=== PATIENT | female | born 1985 | race Two or more races ===

== ENCOUNTER 2021-09-15 19:37 | Emergency (ER) | payer MEDICAID, OTHER ==
[~2021-09-15] VITALS: Ht 175.3 cm; Wt 34.0 kg
[2021-09-15] MEDS ORDERED: IV NS 0.9% 1,000 ML BAG IV ONE (20:00)
--- NOTE | 2021-09-15 20:33 | NUR ---
20g IV LINE ESTABLSIHED AT . BLOOD DRAWN AND SENT TO LAB.
--- NOTE | 2021-09-15 20:35 | NUR ---
URINE COLLECTED AND SENT TO LAB
--- NOTE | 2021-09-15 20:35 | NUR ---
COVID SWAB COLLECTED AND SENT TO LAB
[2021-09-15 20:49] LABS: BASOPHILS % (AUTO) 0.4 % (0.0-2.0); EOSINOPHILS % (AUTO) 0.2 % (0.0-6.0); HEMATOCRIT 44 % (33-45); HEMOGLOBIN 14.3 g/dL (11.5-14.8); LYMPHOCYTES % (AUTO) 40.4 % (20.0-44.0); MEAN CORPUSCULAR HGB CONC 33 g/dl (31.0-36.0); MEAN CORPUSCULAR VOLUME 91 fL (82-100); MONOCYTES # (AUTO) 0.4 K/uL (0.1-1.30); MONOCYTES % (AUTO) 7.5 % (2.0-12.0); NEUTROPHILS # (AUTO) 2.6 K/uL (1.8-8.9); NEUTROPHILS % (AUTO) 51.5 % (43.0-81.0); PLATELET COUNT (AUTO) 196 K/uL (150-450); RED BLOOD CELL COUNT(AUTO) 4.78 MIL/uL (4.0-5.2)
[2021-09-15 20:51] VITALS: BP 110/83
[2021-09-15 20:53] LABS: BILIRUBIN,URINE NEGATIVE (NEGATIVE); COLOR,URINE YELLOW (YELLOW); LEUKOCYTE ESTERASE ,URINE NEGATIVE (NEGATIVE); NITRITE, URINE NEGATIVE (NEGATIVE); PH,URINE 7.5 (5.0-8.0); PROTEIN,URINE NEGATIVE (NEGATIVE); UGLUCOSE NEGATIVE (NEGATIVE)
[2021-09-15 21:17] LABS: BACTERIA,URINE None seen /HPF (None Seen); RBC,URINE 0-2 /HPF (0-2); SQUAMOUS EPITHELIAL CELL,UR 0-2 /HPF (None Seen); URINE AMORPHOUS PHOSPHATES Moderate /HPF (None Seen); WBC,URINE 0-2 /HPF (0-3)
[2021-09-15 21:30] LABS: THYROID STIMULATING HORMONE 1.845 uIU/mL (0.358-3.74)
[2021-09-15 21:32] LABS: ACETAMINOPHEN 1 ug/ml (10-30); ALANINE AMINOTRANSFERASE 83 U/L (12-78); ALBUMIN 2.9 g/dL (3.4-5.0); ALKALINE PHOSPHATASE 71 U/L (46-116); ASPARTATE AMINOTRANSFERASE 60 U/L (15-37); BILIRUBIN,DIRECT 0.1 mg/dL (0.0-0.2); BILIRUBIN,TOTAL 0.4 mg/dL (0.2-1.0); CALCIUM, SERUM 8.5 mg/dL (8.5-10.1); CARBON DIOXIDE 32 mmol/L (21-32); CHLORIDE 106 mmol/L (98-107); GLUCOSE 96 mg/dL (74-106); POTASSIUM 3.8 mmol/L (3.5-5.1); SODIUM SERUM 142 mmol/L (136-145); TOTAL PROTEIN, SERUM 6.2 g/dL (6.4-8.2); UREA NITROGEN, BLOOD 8 mg/dL (7-18)
[2021-09-15 21:42] LABS: ALCOHOL, BLOOD < 3 mg/dL (0-0)
--- NOTE | 2021-09-15 22:11 | NUR ---
FACESHEET AND CLINICALS FAXED TO [facility].
--- NOTE | 2021-09-16 01:56 | NUR ---
PER JULY AT [facility] INTAKE PT IS ACCEPTED AT [facility]JIA # FOR [phone] [phone]
--- NOTE | 2021-09-16 02:11 | NUR ---
[facility] ETA: 90 MIN
--- NOTE | 2021-09-16 03:50 | NUR ---
REPORT GIVEN TO GERARDO
--- NOTE | 2021-09-16 03:55 | NUR ---
[facility] WORK[employer] HELPER AND TRANSFERRED THE PT TO [facility] IN STABLE CONDITION. ALL BELONGINGS WERE PICKED UP
== END 2021-09-16 03:58 ==
LOC: EDBD 19:40 → ER 19:40
DX: F50.2 Bulimia nervosa (principal); Z68.1 Body mass index [BMI] 19.9 or less, adult; F50.00 Anorexia nervosa, unspecified; F32.A Depression, unspecified; R74.01 Elevation of levels of liver transaminase levels; E46 Unspecified protein-calorie malnutrition; R45.851 Suicidal ideations; Z20.822 Contact with and (suspected) exposure to COVID-19
CPT/HCPCS: 36415; 71045; 80048; 80076; 80143; 80307; 80320; 81001; 82962; 84439; 84443; 84484; 84703; 85025; 87426; 93005; 96360; 99285; C9803; J7030; G0480